=== PATIENT | female | born 1975 | race Two or more races ===

== ENCOUNTER 2017-04-05 20:10 | Inpatient (IN) | payer OTHER ==
--- NOTE | ~2017-04-05 | MR18 ---
[facility] A Service of [facility] & [facility] RADIOLOGY TEXT RESULTS PATIENT: DELFINA KUMARI LOCATION: [address] : [birth year] UNIT #: [id number] AGE: [address]: Kalyn Turner MD SEX: F ORDER DR: [id number] [facility] [address]. [place], [place] [address] [id number] I MR#: [id number] Acc #: [id number] NAME: DELFINA KUMARI : 1975 SEX: F STUDY DATE/TIME: 04/06/2017 10:46 UNIT: [facility] ROOM: [facility] STUDY DESCRIPTION: MR Brain Wo Contrast Attending Physician: Kalyn Turner M.D. Ordering Physician: Aleida Morel M.D. Primary Care Physician: No Primary Care Physician MRI CENTER REPORT This report is preliminary unless electronic signature is present. EXAM Brain MRI without. HISTORY Followup stroke and tPA. Concern for possible posterior circulation CVA. Patient received tPA. Patient has a right sided headache. She is a 41 -year-old female who presents with a right-sided headache, diplopia, and weakness at 5:00 p.m. on 04/05/2017 to the emergency room. She also complained of weakness in the arm and legs bilaterally with dysarthric speech. COMMENT MRI of the brain was performed without contrast using routine 1.5T imaging technique. Comparison head CT 04/05/2017. There is generalized atrophy. This is greater than expected for age group. There is no evidence for a recent ischemic insult on the diffusion series. There is no extraaxial fluid collection. The ventricles are normal in size and configuration. The major intracranial flow voids are maintained. The mastoid air cells are clear. Paranasal sinuses are clear. Minimal white matter signal abnormality is seen which is nonspecific, possibly due to small vessel disease but essentially within the range of expected for age group. There is no MRI evidence for intracranial hemorrhage. There is no intracranial mass effect. IMPRESSION 1. No evidence for a recent ischemic insult on the diffusion series. 2. Atrophy greater than expected for age group. 3. Mild paranasal sinus disease without sinus air-fluid level. 4. Minimal white matter signal abnormality essentially within the range expected for age group. Please correlate for any small vessel disease risk factors. [facility] A Service of [facility] & [facility] RADIOLOGY TEXT RESULTS PATIENT: DELFINA KUMARI LOCATION: [place] [address] : [birth year] UNIT #: [id number] AGE: [address]: Kalyn Turner MD SEX: F ORDER DR: STAT * RESULT Dictated by... Loly Courtney M.D. THIS IS AN ELECTRONICALLY VERIFIED REPORT Loly Courtney M.D. at 04/06/2017 4:22 PM KWABENA/mauri TD: 04/06/2017 11:41 JOB #: [id number] MRI CENTER REPORT Page 1 of 1 COPY
--- NOTE | ~2017-04-05 | CO ---
Unit #: [id number] #: [id number] Patient: DELFINA KUMARI [id number] [facility] [address]. [place], [place] [address] [id number] I MR#: [id number] NAME: DELFINA KUMARI ROOM: [facility] Age: 41 Sex: F Admission Date: 04/05/2017 : 1975 Attending Physician: Klayn Turner M.D. Primary Care Physician: No Primary Care Physician Consultation Date: 04/06/2017 CONSULTATION REPORT REFERRING PHYSICIANS 1. Edda Hernandes M.D. 2. López Anderson M.D. PRIMARY CARE PHYSICIAN Dr. Evans. REASON FOR CONSULTATION Possible stroke, code stroke, and status post Alteplase. PATIENT IDENTIFICATION This is a 41-year-old right-handed female who was evaluated in room ICU 8 at [facility]. Also, she was evaluated via [employer] robot last evening. SOURCE OF INFORMATION The patient via clinical professor. Also, the medical records and my discussion with the team. PROBLEM LIST 1. Possible hypertension. 2. Adult-onset diabetes mellitus. 3. Depression. 4. . HISTORY OF PRESENT ILLNESS This is a very pleasant 41-year-old right-handed female who actually presented to the ER via EMS around 8:10 p.m. on April 05, 2017. She stated that she started having symptoms around 5 o'clock and this was feeling of dizziness, sometimes double vision, sometimes blurred vision. She was dysarthric. She reported that she was ataxic. She says that her eyes were not lining up and sometimes the top was not lining up with the bottom. She was dysarthric. Otherwise, ataxia and everything else was very questionable but I saw her via robot after code stroke was called in. I saw her within a few minutes and initially there was a concern about the blood pressure, so we decided after the CT to do the CTA while the blood pressure is being brought down. The blood pressure improved and I had the made the decision to do the TPA if the blood pressure is brought down, and discussed with ER physician after she went back to the ER at 8:37 p.m. to give her TPA because she met the criteria with significant possibility of posterior circulation problem and ataxia and dizziness, diplopia and we want to give her the best change of any treatment. She has improved dramatically. There was initially some headaches but she did much better. Unit #: [id number] #: [id number] Patient: DELFINA KUMARI She does not take any aspirin, Plavix, or any blood thinners. She denies any recent change in medication. Nothing recently changed. No head injury. No trauma. No exposure to toxin. No other changes. No falls or injuries. No prior TIAs, strokes, migraines. No seizure. PAST MEDICAL HISTORY As discussed above. PAST SURGICAL HISTORY As discussed above. ALLERGIES None. HOME MEDICATIONS 1. Metformin b.i.d. 2. Celexa. FAMILY HISTORY Both her parents, I believe, had strokes but in their 60s and 70s. SOCIAL HISTORY The patient is . She lives with family. She denies tobacco, alcohol, or drug use. REVIEW OF SYSTEMS Detailed review of systems was attempted. CONSTITUTIONAL: The patient denies any sleep problems, fevers, chills, rigors, sweats. HEENT: No headaches. No double vision, earache, runny nose, sore throat. CARDIOVASCULAR: No chest pain, clubbing, cyanosis, orthopnea, or palpitations. PULMONARY: No shortness of air, cough, or expectoration. GASTROINTESTINAL: No nausea, vomiting, diarrhea, or constipation. GENITOURINARY: No genitourinary symptoms. EXTREMITIES: No other extremity problems right now. BACK: No back problem. PSYCHIATRIC: History as discussed. NEUROLOGIC: Possible stroke versus TIA. HEMATOLOGIC/DERMATOLOGIC/ENDOCRINE: She is diabetic. No other hematologic, dermatologic, or endocrine problems. PHYSICAL EXAMINATION VITAL SIGNS: Temperature 97.8, pulse 59, respirations 16, blood pressure 101/53. No pain was reported anymore. O2 saturations were 92% to 100%. Weight 156 pounds documented today, but yesterday was 181 to 185 pounds. BMI of 31? NEUROLOGIC: The patient is awake. She is alert. She is oriented. She can name. She can follow commands. No right/left confusion. No finger agnosia. CRANIAL NERVES: Demonstrates full garcia of vision to confrontation. Eye movements are conjugate. I did not see any ptosis. I did not see any nystagmus. Extraocular movements are intact. Sensation on the face and scalp is normal. Strength of muscles of facial expression is normal. Unit #: [id number] #: [id number] Patient: DELFINA KUMARI Hearing seemed to be intact bilaterally. Tongue was midline. Uvula was midline. Palate elevation was normal. Head turning and shoulder shrugs were unremarkable. MOTOR: Demonstrated normal bulk, tone. Strength was essentially 5/5. SENSORY: Intact for soft touch and pain sensation. No extinction was seen. Romberg was not evaluated. GAIT: Deferred. COORDINATION: Normal for dnbowo-rt-okwp-to-finger. DIAGNOSTIC STUDIES Labs and imaging studies reviewed. LABORATORY: Random glucose was 109-190. Creatinine is 0.5. LDL is 102. White count was 13.3, H and H 13.4 and 40.2, platelet count is 319,000. Urinalysis showed some protein, 5-10 RBCs. IMAGING: Head CT which was reported as unremarkable, question about tiny subcentimeter focus of density in anterior limb of left internal capsule, possible chronic lacunar type injury. CTA of the head and neck shows no carotid disease, dominant left vertebral and hypoplastic right vertebral. IMPRESSION This is a very interesting 41-year-old female with dizziness, diplopia, and dysarthria. There was concern about posterior circulation problem. Because of her risk factors and the presentation and she being within the window, it was decided to give her TPA. Post TPA protocol is being followed. I will check her MRI. I will check her other labs and based on any finding, will decide future course of action. I will followup. Other workup has been done. If she needs physical therapy, occupational therapy rehab after she has been evaluated, that will be carried out. I will follow her. Call me for any other questions, issues, or concerns. I am reviewing the timings of the TPA. There was initially a concern about blood pressure problems and we will look into all the details. Call me for any other questions, issues, or concerns. The patient seems to be very happy. Dictated by... Aleida Morel M.D. Mitesh TD: 04/06/2017 17:13 JOB #: [id number] CONSULTATION REPORT Page 1 of 1 X Aleida Morel MD CONSULTATION REPORT
--- NOTE | ~2017-04-05 | DS ---
Unit #: [id number] #: [id number] Patient: DELFINA KUMARI [id number] [address] [address] [id number] I MR#: [id number] NAME: DELFINA KUMARI ROOM: [facility] Age: 41 Sex: F Admission Date: 04/05/2017 : 1975 Discharge Date: 04/07/2017 Attending Physician: Kalyn Turner M.D. Primary Care Physician: No Primary Care Physician DISCHARGE SUMMARY ADDENDUM HOSPITAL COURSE I discussed medications with Dr. Morel and the patient. At this time, Dr. Morel is recommending the patient stop breast feeding, given her child's age, and initiate Plavix and statin therapy due to the fact this may, indeed, have been a stroke that was aborted by TPA. The patient, however, is uncertain whether she is going to stop breast feeding. At this time, we have initiated Plavix 75 mg p.o. daily with 1 refill, lisinopril 2.5 mg daily with 1 refill due to her CHF, and Lipitor 40 mg q.h.s. with 1 refill. The patient has been instructed to not take these medications if she chooses to continue breast feeding, and they should not be initiated until discontinuation of breast feeding. I have also stopped the patient's metformin due to her A1C and sugars being stable and, again, risk of metformin with breast feeding. She can continue her Celexa 20 mg daily. FOLLOWUP The patient should follow up in transition clinic in approximately 2-4 weeks. At that time I would recommend we arrange outpatient referral to cardiology, given she needs workup of her congestive heart failure. She should follow up with Dr. Severo Chairez of outpatient neurology in approximately 4-6 weeks. NOTE: Time spent on discharge - 42 minutes. Dictated by... Kalyn Turner M.D. J CARLOS/elly TD: 04/08/2017 10:18 JOB #: [id number] Unit #: [id number] #: [id number] Patient: DELFINA KUMARI DISCHARGE SUMMARY Page 1 of 1 X Kalyn Turner MD DISCHARGE SUMMARY
--- NOTE | ~2017-04-05 | EKG ---
PATIENT: DELFINA KUMARI UNIT #: [id number] Ventricular Rate: 83 BPM Atrial Rate: 83 BPM P-R Interval: 166 ms QRS Duration: 84 ms Q-T Interval: 368 ms QTC Calculation(Bezet): 432 ms P [place]: 20 degrees Calculated R [place]: -27 degrees Calculated T [place]: -9 degrees Diagnosis Line: Normal sinus rhythm Diagnosis Line: Voltage criteria for left ventricular hypertrophy Diagnosis Line: Nonspecific T wave abnormality Diagnosis Line: Abnormal ECG Diagnosis Line: No previous ECGs available Diagnosis Line: Confirmed by ANIA CARNEY MD ([id number]) on 04/06/2017 Diagnosis Line: 6:04:38 PM INTERPRETING MD: ROMMEL JOSHI
--- NOTE | ~2017-04-05 | CT71 ---
[facility] A Service of [facility] & [facility] RADIOLOGY TEXT RESULTS PATIENT: DELFINA KUMARI LOCATION: CIC2 CICCU2-08 : [birth year] UNIT #: [id number] AGE: [address]: Kalyn Turner MD SEX: F ORDER DR: [id number] [facility] [address] [place], [place] [address] [id number] E MR#: [id number] Acc #: [id number] NAME: DELFINA KUMARI : 1975 SEX: F STUDY DATE/TIME: 04/05/2017 20:15 UNIT: [facility] ROOM: STUDY DESCRIPTION: CT Head Wo Contrast Ordering Physician: Taj Ortiz D.O. MEDICAL IMAGING REPORT This report is preliminary unless electronic signature is present EXAM CT head 04/05/2017 HISTORY Dizziness. Slurred speech today prior to arrival. TECHNIQUE CT head performed from skull base to vertex without intravenous contrast. This CT exam was performed with one or more of the following radiation dose reduction techniques: automatic exposure control, adjustment of mA and/or kV according to patient size, and iterative reconstruction. FINDINGS Study degraded by streak artifact by ear jewelry not removed prior to examination. Brainstem unremarkable. Cerebellum and cerebral hemispheres show normal cummings matter-white matter differentiation. No hemorrhage. No evidence of acute cortical ischemia. Midline structures nondisplaced. Basal ganglia intact. There is a tiny subcentimeter focus of hypodensity in the anterior limb of the left internal capsule, favored to represent small chronic lacunar infarct. The ventricles, cisterns and sulci show mild generalized enlargement consistent with mild generalized atrophy. No intra- or extraaxial mass effect or abnormal intracranial fluid collection. There are cavernous carotid and distal vertebral arterial calcifications. Visualized intraorbital soft tissues are unremarkable. Visualized paranasal sinuses and mastoid air cells are clear. IMPRESSION 1. No acute abnormality seen in the brain. If the patient has ongoing neurologic symptoms, consider follow-up imaging. 2. Mild generalized atrophy. 3. Tiny subcentimeter focus of hypodensity anterior limb left internal [facility] A Service of [facility] & [facility] RADIOLOGY TEXT RESULTS PATIENT: DELFINA KUMARI LOCATION: [facility] : [birth year] UNIT #: [id number] AGE: [address]: Kalyn Turner MD SEX: F ORDER DR: roxane, favored to be chronic lacunar infarct. 4. See remainder of incidental findings in body of report above. Dictated by... Neymar Varela M.D. THIS IS AN ELECTRONICALLY VERIFIED REPORT Neymar Varela M.D. at 04/06/2017 5:58 PM OKSANA/maria alejandra TD: 04/05/2017 22:14 JOB #: [id number] MEDICAL IMAGING REPORT Page 1 of 1 COPY
--- NOTE | ~2017-04-05 | CT71 ---
[facility] A Service of [facility] & [facility] RADIOLOGY TEXT RESULTS PATIENT: DELFINA KUMARI LOCATION: [address] : [birth year] UNIT #: [id number] AGE: [address]: Kalyn Turner MD SEX: F ORDER DR: [id number] [facility] [address] [place], [place] [address] [id number] I MR#: [id number] Acc #: [id number] NAME: DELFINA KUMARI : 1975 SEX: F STUDY DATE/TIME: 04/06/2017 22:02 UNIT: [facility] ROOM: [facility] STUDY DESCRIPTION: CT Head Wo Contrast Attending Physician: Kalyn Turner M.D. Ordering Physician: Edda Hernandes M.D. Primary Care Physician: Primary Care Physician No MEDICAL IMAGING REPORT This report is preliminary unless electronic signature is present EXAM CT head INDICATION CVA. TPA administration. Restaging. TECHNIQUE CT head without contrast. This CT exam was performed with one or more of the following radiation dose reduction techniques: automatic exposure control, adjustment of mA and/or kV according to patient size, and iterative reconstruction. COMPARISON CT head dated 04/05/2017. FINDINGS Axial noncontrast images were obtained from the skull base to the vertex. Ventricular size and configuration are normal. There is no evidence of acute infarct or hemorrhage. There are no extra-axial fluid collections. No mass lesion or mass effect is seen. There are no skull fractures. IMPRESSION Normal noncontrast head CT. Dictated by... Jordon Swift M.D. THIS IS AN ELECTRONICALLY VERIFIED REPORT Jordon Swift M.D. at 04/07/2017 12:49 AM AMMON/ba [facility] A Service of [facility] & [facility] RADIOLOGY TEXT RESULTS PATIENT: DELFINA KUMARI LOCATION: [address] : [birth year] UNIT #: [id number] AGE: [address]: Kalyn Turner MD SEX: F ORDER DR: TD: 04/06/2017 23:08 JOB #: [id number] MEDICAL IMAGING REPORT Page 1 of 1 COPY
--- NOTE | ~2017-04-05 | HP ---
Unit #: [id number] #: [id number] Patient: DELFINA KUMARI [id number] [address] [address] [id number] E MR#: [id number] NAME: DELFINA KUMARI ROOM: Age: 41 Sex: F Admission Date: 04/05/2017 : 1975 Attending Physician: López Anderson M.D. Primary Care Physician: Primary Care Physician No HISTORY AND PHYSICAL CHIEF COMPLAINT Possible posterior circulation CVA. HISTORY OF PRESENT ILLNESS This pleasant 41-year-old female with type 2 diabetes mellitus, is admitted for possible posterior circulation CVA. The patient was in her usual state of health until 5 p.m. when she developed a right-sided headache, diplopia, weakness in the arm and legs bilaterally and dysarthric speech. She presented to this emergency department at 8:10 p.m. and immediately went to CT scan and the case was discussed with Dr. Morel who I believe also used the robot to examine the patient. It was determined that she was a TPA candidate. Her symptoms actually did start to improve somewhat before the TPA but she still had dysarthric speech. She was given a TPA and her symptoms are now resolved except for right-sided headache. Head CT is negative except for a possible tiny chronic lacunar infarct anterior limb of the left internal capsule. CTA of the head and neck dominant left vertebral artery and hypoplastic right vertebral artery. The patient does not take aspirin. PAST MEDICAL HISTORY 1. AODM. 2. Depression. 3. . SOCIAL HISTORY The patient lives with her and children along with extended family. Lifelong nonsmoker, does not drink alcohol. FAMILY HISTORY CVA. ALLERGIES None. MEDICATIONS Metformin b.i.d. Celexa 20 mg q a.m. REVIEW OF SYSTEMS Review of systems is somewhat limited due to language, the patient does not speak Amharic, a coke inspector was used in the ER. PHYSICAL EXAMINATION Unit #: [id number] #: [id number] Patient: DELFINA KUMARI GENERAL APPEARANCE: Very pleasant, mildly obese 41-year-old female, currently in no acute distress. VITAL SIGNS: Temperature 98, pulse 80, respirations 20. Initial blood pressure 145/74, 02 saturation 96% on room air. HEENT: Eyes - PERRLA, extraocular muscles are intact. Pharynx is benign. NECK: Neck is supple without adenopathy or thyromegaly. CHEST: Chest is clear. HEART: Normal S1, S2 without murmur. ABDOMEN: Bowel sounds are present, no hepatomegaly, tenderness or masses. EXTREMITIES: Without edema. Pedal pulses are present. NEUROLOGIC: The patient is awake, alert, oriented x3. Her cranial nerves are intact. Speech is fluent. She has +5 out of 5 strength throughout, normal imytir-lb-uinp, normal jhel-jf-aozp. Negative pronator drift. Sensation is intact bilaterally. DIAGNOSTIC STUDIES LABORATORY: Hematocrit is 43.8, white blood count is 11.3, normal platelet count, negative cardiac markers, normal INR. SMA 7 - glucose 190, potassium 2.9. IMAGING: CT of the head is negative except for what appears to be a chronic tiny anterior limb left internal capsule lacunar infarct. CTA of the head and neck negative except for a dominant left vertebral artery and hypoplastic right vertebral artery. CARDIOVASCULAR: EKG - normal sinus rhythm, rate 83, some nonspecific ST-wave abnormalities. Troponin is negative. ASSESSMENT 1. Possible posterior circulation CVA. Symptoms are improved, the patient did receive TPA. 2. AODM. 3. Depression. 4. Hypokalemia. 5. Right-sided headache. PLAN 1. Post TPA orders will be implemented along with frequent neuro checks. Dr. Morel was consulted and saw the patient via robot. 2. Check lipid profile. 3. Replace potassium, check magnesium. 4. Monitor Accu-Cheks, hold Glucophage. 5. SCDs for DVT prophylaxis. 6. Will need MRI and echo versus GLENDY. Critical care time spent on evaluating this patient was 35 minutes. STAT * RESULT Dictated by Edda Hernandes M.D. SHAHLA/ba TD: 04/05/2017 23:37 Unit #: [id number] #: [id number] Patient: DELFINA KUMARI JOB #: [id number] HISTORY AND PHYSICAL Page 1 of 1 X Edda Hernandes MD HISTORY AND PHYSICAL
--- NOTE | ~2017-04-05 | CT24 ---
[facility] A Service of [facility] & [facility] RADIOLOGY TEXT RESULTS PATIENT: DELFINA KUMARI LOCATION: [facility] : [birth year] UNIT #: [id number] AGE: [address]: Bhanu Anderson MD SEX: F ORDER DR: [id number] [facility] [address] [place], [place] [address] [id number] E MR#: [id number] Acc #: [id number] NAME: DELFINA KUMARI : 1975 SEX: F STUDY DATE/TIME: 04/05/2017 20:27 UNIT: [facility] ROOM: STUDY DESCRIPTION: CT Angio Neck Stroke Attending Physician: López Anderson M.D. Ordering Physician: Aleida Morel M.D. Primary Care Physician: Primary Care Physician No MEDICAL IMAGING REPORT This report is preliminary unless electronic signature is present EXAM CT angiogram head and neck with IV contrast HISTORY Dizzy and slurred speech today. FINDINGS IV contrast-enhanced CT angiogram of the head and neck was performed with 3-D reconstructions. The exam is limited by patient motion artifact degrading images in the neck and head. This CT exam was performed with one or more of the following radiation dose reduction techniques: Automatic exposure control, adjustment of mA and/or kV according to patient size, and iterative reconstruction. CT ANGIOGRAM NECK: The common carotid arteries, carotid bulbs and cervical internal carotid arteries are widely patent bilaterally, with no definite stenosis by NASCET criteria. A portion of the mid common carotid arteries is degraded by motion artifact. The external carotid arteries are patent bilaterally. Both vertebral arteries are patent, dominant on the left and hypoplastic on the right. CT ANGIOGRAM BRAIN: Dominant intracranial left vertebral artery and hypoplastic intracranial right vertebral artery supply the basilar artery, which is normal in caliber. The intracranial internal carotid arteries appear widely patent. The anterior cerebral, middle cerebral and posterior cerebral arteries are patent and no stenosis is identified, but sensitivity is limited by motion artifact degrading multiple images. No aneurysm or vascular malformation is identified, but sensitivity is limited by the motion artifact. IMPRESSION 1. Zero percent cervical carotid artery stenosis by NASCET criteria. Partly technically limited evaluation of the mid common carotid STS. [facility] A Service of [facility] & [facility] RADIOLOGY TEXT RESULTS PATIENT: DELFINA KUMARI [id number] [birth year] UNIT #: [id number] AGE: [address]: Bhanu Anderson MD SEX: F ORDER DR: arteries due to motion. 2. No intracranial arterial abnormalities identified, although sensitivity is again limited by motion. 3. Dominant left vertebral artery and hypoplastic right vertebral artery. Dictated by... Ashwin Walker M.D. THIS IS AN ELECTRONICALLY VERIFIED REPORT Ashwin Walker M.D. at 04/05/2017 11:22 PM DFL/fatuma TD: 04/05/2017 22:58 JOB #: [id number] MEDICAL IMAGING REPORT Page 1 of 1 COPY
--- NOTE | ~2017-04-05 | CT17 ---
[facility] A Service of [facility] & [facility] RADIOLOGY TEXT RESULTS PATIENT: DELFINA KUMARI LOCATION: [facility] : 71 UNIT #: [id number] AGE: [address]: Bhanu Anderson MD SEX: F ORDER DR: [id number] [facility] [address] [place], [place] [address] [id number] MR#: [id number] Acc #: [id number] NAME: DELFINA KUMARI : 1975 SEX: F STUDY DATE/TIME: 04/05/2017 20:27 UNIT: [facility] ROOM: STUDY DESCRIPTION: CT Angio Head Attending Physician: López Anderson M.D. Ordering Physician: Aleida Morel M.D. Primary Care Physician: Primary Care Physician No MEDICAL IMAGING REPORT This report is preliminary unless electronic signature is present EXAM CT angiogram head with IV contrast HISTORY Dizzy and slurred speech today. FINDINGS Please see CT ANGIO NECK STROKE report for combined text results. Dictated by... Ashwin Walker M.D. THIS IS AN ELECTRONICALLY VERIFIED REPORT Ashwin Walker M.D. at 04/05/2017 11:23 PM DFL/fatuma TD: 04/05/2017 22:59 JOB #: [id number] MEDICAL IMAGING REPORT Page 1 of 1 COPY
--- NOTE | ~2017-04-05 | DS ---
Unit #: [id number] #: [id number] Patient: DELFINA KUMARI [id number] [address] [address] [id number] I MR#: [id number] NAME: DELFINA KUMARI ROOM: [facility] Age: 41 Sex: F Admission Date: 04/05/2017 : 1975 Discharge Date: 04/07/2017 Attending Physician: Kalyn Turner M.D. Primary Care Physician: No Primary Care Physician DISCHARGE SUMMARY PRINCIPAL DIAGNOSES 1. Diplopia and dysarthria, question secondary to aborted cerebrovascular accident versus headache induced. 2. Diabetes mellitus type 2, non-insulin requiring, controlled with hemoglobin A1C of 5.7. 3. Hypokalemia. 4. Depression. 5. Hyperlipidemia. 6. Vitamin B12 deficiency with vitamin B12 level of 234. 7. Mild systolic congestive heart failure with ejection fraction of 40%. CONSULTANTS Dr. Morel, neurology. DIAGNOSTIC STUDIES CARDIOVASCULAR: Two-dimensional echocardiogram on April 06, 2017 with ejection fraction of 35% to 40%, mild tricuspid regurgitation, right ventricular systolic pressure of 35 mmHg. No evidence of PFO. Grade 1 diastolic dysfunction noted. Mild concentric left ventricular hypertrophy. IMAGING: CT of the head without contrast on April 05, 2017 with no acute abnormality. Mild generalized atrophy noted. Subcentimeter focus of hypodensity in the anterior limb of the left internal capsule consistent with chronic lacunar infarct. CT angiogram of the head and neck on April 05, 2017 with 0% cervical carotid artery stenosis per NASCET criteria. Dominant left vertebral artery and hypoplastic right vertebral artery. MRI of the brain without contrast on April 06, 2017 with no evidence for recent ischemic insult. Atrophy is greater than expected for age. Mild paranasal sinus disease noted. CT of the head without contrast on April 06, 2017, which was normal. CLINICAL HISTORY AND HOSPITAL COURSE Ms. Kumari is a very nice 41-year-old female who presented to the emergency department with the abrupt onset of right-sided headache, diplopia, weakness in the arms and legs bilaterally and dysarthric speech. Please refer to H and P for further details. Given the patient's young age, her complaints and risks for posterior circulation CVA, she underwent TPA administration and subsequently admitted to the ICU. Imaging studies pre- and post-TPA are as noted above and all remain Unit #: [id number] #: [id number] Patient: DELFINA KUMARI normal. Patient initially continued to have right-sided headache the morning following admission, but this has resolved. She has had no further neurologic findings. She does have some mild hyperlipidemia with an LDL of 102 and a mildly reduced ejection fraction of approximately 40%, for which she will require outpatient evaluation. However, patient is clinically stable. Patient does have an [id number] infant at home and continues to breast feed. This currently limits ability to take Plavix or any statin therapy. The patient will be discharged home on medications as dictated as an addendum after discussion with Dr. Morel. She will follow up in transition clinic as noted. DISCHARGE CONDITION Stable. DISCHARGE STATUS Discharge to home. DISCHARGE MEDICATIONS Will be dictated as an addendum. FOLLOW-UP Patient should follow up in transition clinic in approximately 4 weeks. Dictated by... Kalyn Turner M.D. J CARLOS/elly TD: 04/08/2017 08:52 JOB #: [id number] DISCHARGE SUMMARY Page 1 of 1 X Kalyn Turner MD X DISCHARGE SUMMARY
[2017-04-05] MEDS ORDERED: GLUCOPHAGE500 MG PO (20:35)
[2017-04-05] MEDS ORDERED: CELEXA20 MG PO (20:35)
[2017-04-05 20:46] LABS: POC - CKMB <1.0 ng/mL (0.0-7.9); POC - TROPONIN <0.05 ng/mL (<=0.05)
[2017-04-05 21:07] LABS: BASOPHIL# 0.1 X10e3 (0-0.3); BASOPHIL% 0.6 % (0-2.5); EOSINOPHIL# 0.1 X10e3 (0-0.7); HEMATOCRIT 43.8 % (35.0-45.0); HEMOGLOBIN 14.5 gm/dL (12.0-16.0); INR 0.9; LYMPHOCYTE# 3.2 X10e3 (1.0-3.5); MEAN CELL VOLUME 94.6 FL (83-96); MEAN CORPUSCULAR HEMOGLOBIN 31.3 PG (28-34); MEAN CORPUSCULAR HGB CONC 33.1 g/dL (30-36); MONOCYTE% 8.7 % (3.0-12.0); NEUTROPHIL% 61.7 % (40-75); PLATELET COUNT 376 X10e3 (140-420); PROTHROMBIN TIME (PATIENT) 9.8 SECONDS (9.6-11.5); RED BLOOD COUNT 4.63 X10e (3.90-5.30); RED CELL DISTRIBUTION WIDTH 12.6 % (11.0-15.5); WHITE BLOOD COUNT 11.3 X10e3 (4.0-10.5)
[2017-04-05 21:08] LABS: DIFF IND NO
[2017-04-05 21:14] LABS: CREATININE SERUM 0.6 mg/dL (0.6-1.4); GLOM FILT RATE Estimated 111.6 mL/min (>60)
[2017-04-05 21:15] LABS: CALCIUM SERUM 9.4 mg/dL (8.4-10.2)
[2017-04-05 21:17] LABS: POTASSIUM 2.9 mmol/L (3.5-5.1)
[2017-04-06 00:42] LABS: URINE APPEARANCE CLEAR; URINE BACTERIA AUWI NEG (NEGATIVE); URINE BILIRUBIN NEG (NEG); URINE BLOOD TRACE (NEG); URINE COLOR YELLOW; URINE GLUCOSE NEG (NEG); URINE KETONE NEG (NEG); URINE LEUKOCYTE ESTERASE NEG (NEG); URINE NITRATE NEG (NEG); URINE PH 7.5 (5-8); URINE PROTEIN 1+ (NEG); URINE SPECIFIC GRAVITY 1.074 (1.003-1.035); URINE SQUAMOUS EPITHELIAL CELL NONE SEEN /[HPF]; UWBCS1 AUWI 0-2 (0-5)
[2017-04-06 00:43] LABS: CULTURE INDICATED? NO
[2017-04-06 05:37] LABS: BASOPHIL# 0.1 X10e3 (0-0.3); BASOPHIL% 0.4 % (0-2.5); HEMATOCRIT 40.2 % (35.0-45.0); HEMOGLOBIN 13.4 gm/dL (12.0-16.0); LYMPHOCYTE# 1.9 X10e3 (1.0-3.5); LYMPHOCYTE% 14.7 % (17.0-45.0); MEAN CELL VOLUME 95.1 FL (83-96); MEAN CORPUSCULAR HEMOGLOBIN 31.6 PG (28-34); MEAN CORPUSCULAR HGB CONC 33.3 g/dL (30-36); MEAN PLATELET VOLUME 8.3 FL (6.5-11.5); MONOCYTE# 0.7 X10e3 (0-1.0); MONOCYTE% 5.5 % (3.0-12.0); NEUTROPHIL# 10.6 X10e3 (1.5-7.1); NEUTROPHIL% 79.4 % (40-75); PLATELET COUNT 319 X10e3 (140-420); RED BLOOD COUNT 4.22 X10e (3.90-5.30); RED CELL DISTRIBUTION WIDTH 12.4 % (11.0-15.5); WHITE BLOOD COUNT 13.3 X10e3 (4.0-10.5)
[2017-04-06 05:39] LABS: DIFF IND NO
[2017-04-06 05:54] LABS: INR 1.1; PARTIAL THROMBOPLASTIN TIME 27.1 SECONDS (23.5-31.3); PROTHROMBIN TIME (PATIENT) 11.8 SECONDS (9.6-11.5)
[2017-04-06 06:33] LABS: ALBUMIN SERUM 3.6 g/dL (3.5-5.0); BILIRUBIN,TOTAL 0.5 mg/dL (0.2-2.0); CALCIUM SERUM 8.9 mg/dL (8.4-10.2); CREATININE SERUM 0.5 mg/dL (0.6-1.4); GLOM FILT RATE Estimated 118.6 mL/min (>60); MAGNESIUM 1.8 mg/dL (1.6-3.0); PROTEIN TOTAL SERUM 6.4 g/dL (6.0-8.3)
[2017-04-06 06:47] LABS: POTASSIUM 4.9 mmol/L (3.5-5.1)
[2017-04-06 07:05] LABS: POC - CREATININE 0.75 mg/dL (0.44-1.03); POC - GFR >60.0 mL/min (>60)
[2017-04-06 11:06] LABS: FOLATE (FOLIC ACID) >23.6 ng/mL (>5.8)
[2017-04-06 23:00] LABS: BASOPHIL% 0.4 % (0-2.5); EOSINOPHIL# 0.1 X10e3 (0-0.7); EOSINOPHIL% 1.1 % (0.0-7.0); HEMATOCRIT 41.4 % (35.0-45.0); HEMOGLOBIN 13.8 gm/dL (12.0-16.0); LYMPHOCYTE# 2.7 X10e3 (1.0-3.5); LYMPHOCYTE% 28.5 % (17.0-45.0); MEAN CORPUSCULAR HEMOGLOBIN 31.8 PG (28-34); MEAN CORPUSCULAR HGB CONC 33.4 g/dL (30-36); MEAN PLATELET VOLUME 7.9 FL (6.5-11.5); MONOCYTE# 0.9 X10e3 (0-1.0); MONOCYTE% 9.8 % (3.0-12.0); NEUTROPHIL# 5.7 X10e3 (1.5-7.1); NEUTROPHIL% 60.2 % (40-75); PLATELET COUNT 324 X10e3 (140-420); RED BLOOD COUNT 4.36 X10e (3.90-5.30); RED CELL DISTRIBUTION WIDTH 12.7 % (11.0-15.5); WHITE BLOOD COUNT 9.5 X10e3 (4.0-10.5)
[2017-04-06 23:13] LABS: DIFF IND NO
[2017-04-07 05:01] LABS: BASOPHIL# 0.1 X10e3 (0-0.3); BASOPHIL% 0.7 % (0-2.5); DIFF IND NO; EOSINOPHIL# 0.3 X10e3 (0-0.7); EOSINOPHIL% 2.8 % (0.0-7.0); HEMATOCRIT 43.7 % (35.0-45.0); HEMOGLOBIN 14.4 gm/dL (12.0-16.0); LYMPHOCYTE# 2.6 X10e3 (1.0-3.5); LYMPHOCYTE% 26.2 % (17.0-45.0); MEAN CELL VOLUME 95.5 FL (83-96); MEAN CORPUSCULAR HEMOGLOBIN 31.5 PG (28-34); MEAN PLATELET VOLUME 8.2 FL (6.5-11.5); MONOCYTE% 10.5 % (3.0-12.0); NEUTROPHIL# 5.9 X10e3 (1.5-7.1); NEUTROPHIL% 59.8 % (40-75); PLATELET COUNT 301 X10e3 (140-420); RED BLOOD COUNT 4.58 X10e (3.90-5.30); RED CELL DISTRIBUTION WIDTH 12.8 % (11.0-15.5); WHITE BLOOD COUNT 9.8 X10e3 (4.0-10.5)
[2017-04-07 06:24] LABS: CALCIUM SERUM 9.9 mg/dL (8.4-10.2); CREATININE SERUM 0.5 mg/dL (0.6-1.4); GLOM FILT RATE Estimated 118.6 mL/min (>60)
[2017-04-07] MEDS ORDERED: LIPITOR40 MG PO (10:37)
[2017-04-07] MEDS ORDERED: LISINOPRIL2.5 MG PO (10:38)
[2017-04-07] MEDS ORDERED: CLOPIDOGREL75 MG PO (10:38)
[2017-04-07] MEDS ORDERED: CYANOCOBALAM1000 MCG PO (10:41)
== END 2017-04-07 12:00 | disposition home or self-care (01) | DRG 62 ==
LOC: CED 20:10 → EDBD 23:15 → CICCU2 23:15 → CEDOF 23:15 → EDBD 23:31 → CICCU2 23:31 → CEDOF 23:31 → CED 23:31 → CEDOF 04-06 00:34 → CICCU2 04-06 00:34 → CEDOF 04-06 11:25 → CICCU2 04-06 11:25
PROVIDERS: Emergency Medicine; Internal Medicine; Psychiatry & Neurology Neurology
PROC: 3E03317 Introduction of Other Thrombolytic into Peripheral Vein, Percutaneous Approach (ICD-10-PCS; principal; 2017-04-05)
PROC: B32RYZZ Computerized Tomography (CT Scan) of Intracranial Arteries using Other Contrast (ICD-10-PCS; 2017-04-05)
PROC: B32GYZZ Computerized Tomography (CT Scan) of Bilateral Vertebral Arteries using Other Contrast (ICD-10-PCS; 2017-04-05)
DX: I63.8 Other cerebral infarction (principal); I50.22 Chronic systolic (congestive) heart failure; F32.9 Major depressive disorder, single episode, unspecified; E11.9 Type 2 diabetes mellitus without complications; Z79.84 Long term (current) use of oral hypoglycemic drugs; E87.6 Hypokalemia; E78.5 Hyperlipidemia, unspecified; E66.9 Obesity, unspecified; G43.909 Migraine, unspecified, not intractable, without status migrainosus; R29.708 NIHSS score 8; H53.2 Diplopia; R47.1 Dysarthria and anarthria; E53.8 Deficiency of other specified B group vitamins; Z68.31 Body mass index [BMI] 31.0-31.9, adult
CPT/HCPCS: 51702; 70450; 70496; 70498; 70551; 80048; 80053; 80061; 81003; 82550; 82553; 82565; 82607; 82746; 82947; 83036; 83735; 84484; 85025; 85610; 85730; 92610; 92611; 93005; 93306; 96361; 96374; 96375; 97161; 97165; 99291; J2405; J2765; J2997; Q9967

== ENCOUNTER → 2017-05-04 | Outpatient (CLI) | payer OTHER ==
[~2017-05-04] MED LIST: CELEXA20 MG PO; CLOPIDOGREL75 MG PO; CYANOCOBALAM1000 MCG PO; GLUCOPHAGE500 MG PO; LIPITOR40 MG PO; LISINOPRIL2.5 MG PO
== END | disposition home or self-care (01) ==
LOC: CBAR 09:20
DX: H53.2 Diplopia (principal); E11.9 Type 2 diabetes mellitus without complications; F32.9 Major depressive disorder, single episode, unspecified; E78.5 Hyperlipidemia, unspecified; I50.21 Acute systolic (congestive) heart failure
CPT/HCPCS: 82947